=== PATIENT | female | born 1995 | race Caucasian/White ===

== ENCOUNTER → 2020-10-06 16:09 | Outpatient (BNVA) | payer OTHER, SELFPAY | PROVIDERS: Visit Provider Advanced Practice Midwife | DX: Z76.89 Persons encountering health services in other specified circumstances (principal) ==

== ENCOUNTER 2020-12-14 11:40 | Outpatient (REF) | payer OTHER, SELFPAY | END 2020-12-14 11:41 | disposition home or self-care (01) | LOC: HO.LAB 11:40 | PROVIDERS: Visit Provider Nurse Practitioner Family | DX: J02.9 Acute pharyngitis, unspecified (principal); Z20.822 Contact with and (suspected) exposure to COVID-19 | CPT/HCPCS: 36415; U0003; U0005 ==

== ENCOUNTER 2021-01-03 10:14 | Emergency (ER) | payer OTHER, SELFPAY ==
--- NOTE | ~2021-01-03 | CT_ITS ---
EXAMINATION: CT ABDOMEN AND PELVIS WITHOUT CONTRAST CLINICAL INFORMATION: Flank pain. History of kidney stones. COMPARISON: Previous CT of the abdomen and pelvis February 2018 and renal ultrasound December 2018 TECHNIQUE: Multidetector volumetric imaging was performed from the superior aspect of the liver through the pubic symphysis. Sagittal and coronal reformatted images were obtained on the technologist's workstation. This CT examination was performed using dose optimization techniques as appropriate, variously including the following: *Automated exposure control *Adjustment of mA and/or kV according to patient size (this includes techniques or standardized protocols for targeted exams where dose is matched to indication/reason for exam; i.e. extremities or head) *Use of iterative reconstruction technique DLP: 607 mGy-cm FINDINGS: LUNG BASES: The visualized lung bases are unremarkable. LIVER, GALLBLADDER, AND BILIARY TREE: The liver is normal in size, shape, and attenuation. No focal hepatic lesion or biliary ductal dilatation is present. The gallbladder is unremarkable with no evidence of radiopaque gallstones, gallbladder wall thickening, or obvious pericholecystic inflammatory changes. PANCREAS: Unremarkable. SPLEEN: Unremarkable. ADRENAL GLANDS: Unremarkable. KIDNEYS AND URETERS: There is mild right hydronephrosis and ureteral dilatation. The right ureter is dilated down to the bladder. No right renal or ureteral stone is seen. This may represent a recently passed stone. There is stranding of the fat surrounding the right ureter questionable for changes secondary to obstruction/backflow of urine. Differential would include infection. There are 2 adjacent left lower pole renal stones, measuring 1 and 3 mm. No left hydronephrosis, ureteral dilatation or ureteral stone is seen. BLADDER: Unremarkable. GASTROINTESTINAL TRACT: The small and large bowel are unremarkable. The appendix is unremarkable. ABDOMINAL WALL: There is a small umbilical hernia containing fat. LYMPH NODES: Normal. VASCULAR: Unremarkable. PELVIC VISCERA: Unremarkable. There is trace ascites in the pelvis. OSSEOUS STRUCTURES: Unremarkable. CT/CT abdomen pelvis wo con IMPRESSION: Mild right hydronephrosis and ureteral dilatation. The right ureter is dilated down to the bladder. No right stone is seen. This may represent a recently passed done. Stranding of the right periureteral fat. This may be secondary to obstruction with backflow of urine. Differential would include infection. 2 small adjacent left lower pole renal stones.
[2021-01-03 10:32] VITALS: BP 129/80; PULSE 115; RESP 18; TEMP 36.6; O2SAT 100; BMI 29.2
--- NOTE | 2021-01-03 10:38 | ED_ITS ---
HPI - Abdominal Pain General Chief Complaint: Abdominal Pain Stated Complaint: flank pain Time Seen by Provider: 01/03/21 10:36 Source: patient Mode of arrival: ambulatory Limitations: no limitations History of Present Illness HPI narrative: Patient's history of occasional kidney stone last time when she had stone was 2018 was doing fine for last 2 years yesterday after work at 16:00 noticed sudden onset of pain on the right flank area now she feels slight pain in the left flank area also associated with nausea vomited 1 time today Related Data Home Medications Medication Instructions Recorded Confirmed etonogestrel 0.12 mg-ethinyl vag ring VAGINAL 10/06/20 12/28/20 estradiol 0.015 mg/24 hr vaginal ring escitalopram oxalate 10 mg tablet 10 mg PO DAILY 12/14/20 Previous Rx's Medication Instructions Recorded etonogestrel 0.12 mg-ethinyl 1 vag ring VAGINAL Q4W #3 ea 10/06/20 estradiol 0.015 mg/24 hr vaginal ring amoxicillin 500 mg-potassium 1 tab PO BID 7 Days #14 tab 12/14/20 clavulanate 125 mg tablet dexamethasone 4 mg tablet 4 mg PO DAILY #18 tab MDD 12/14/20 TID*3days;BID*3days;1tab*3days azithromycin 500 mg tablet 500 mg PO DAILY 5 Days #5 tab 12/28/20 prednisone 20 mg tablet 20 mg PO .COMPLEX #18 tab 12/28/20 tramadol 50 mg PO Q6H PRN #20 tab 01/03/21 Allergies Allergy/AdvReac Type Severity Reaction Status Date / Time No Known Allergies Allergy Verified 12/28/20 14:18 [No Known Allergies*] Review of Systems Review of Systems Constitutional : No Weight loss, No Fever, No Chills ENT/Mouth : No sore throat, No Rhinorrhea Eyes: No Eye Pain, No Swelling Cardiovascular : No Chest Pain, no palpitations Respiratory : No Cough, No Sputum, no shortness of breath Gastrointestinal : + Nausea, +Vomiting, No Diarrhea, No abdominal Pain, no black stools Genitourinary : No Dysuria, No Urinary Frequency Musculoskeletal : No joint pain, No Myalgias, No Joint Swelling Skin : No Skin Lesions, No rash Neuro : No Weakness, No Numbness, No Dizziness, No Headache Psych : No Anxiety/Panic, No Depression Heme/Lymph: No Bruising, No Lymphadenopathy Endocrine : No Polyuria, No Polydipsia All other systems reviewed and are negative Physical Exam Vital Signs: Vital Signs: Last Vital Signs Temp 97.9 F 01/03/21 10:32 Pulse 115 H 01/03/21 10:32 Resp 18 01/03/21 10:32 BP 129/80 01/03/21 10:32 Pulse Ox 100 01/03/21 10:32 Body Mass Index 29.2 Appearance: Alert. Oriented X3. No acute distress. Eyes: Pupils equal, round and reactive to light. ENT: Pharynx normal. Neck: Normal inspection. Neck supple. CVS: Normal heart rate and rhythm. Pulses normal. Respiratory: No respiratory distress. Breath sounds normal. Abdomen: Soft and nontender. Bowel sounds are present, no mass palpable, right CVA tenderness ++ Skin: Skin warm and dry. Normal skin color. Normal skin turgor. Extremities: No lower extremity edema. Neuro: Oriented X 3. No motor deficit. No sensory deficit. MDM - Abdominal Pain MDM Narrative Medical decision making narrative: Patient feeling much better after IV fluids and pain medication CT scan showed right-sided hydronephrosis without any stone likely stone passed as urine has positive blood. Will discharge patient home on tramadol advised to follow with PCP/urologist Differential Diagnosis Differential diagnosis: Likely calculus of kidney Medical Records Attestation: I reviewed the patient's medical records. Lab Data Attestation: I reviewed the patient's lab results. Result diagrams: 01/03/21 10:57 01/03/21 10:57 Labs: Lab Results 01/03/21 01/03/21 01/03/21 Range/Units 10:57 10:57 11:11 WBC 12.0 H (4.8-10.8) X10*3/uL RBC 4.44 (4.20-5.50) X10*6/uL Hgb 13.7 (12.0-16.0) g/dl Hct 42.0 (37-47) % MCV 94.6 (80-98) fL MCH 30.9 (27.0-33.0) pg MCHC 32.6 (31.0-35.0) g/dl RDW 13.0 (11.0-16.0) % Plt Count 191 (160-400) X10*3/uL MPV 9.4 (9.4-12.3) fL Immature Gran % (Auto) 0.4 (0.0-0.4) % Neut % (Auto) 75.9 H (45-73) % Lymph % (Auto) 14.4 L (20-40) % [place] % (Auto) 8.5 (2-11) % Eos % (Auto) 0.7 (0-4) % Baso % (Auto) 0.1 (0-2) % Lymph # (Auto) 1.7 (1.2-4.9) X10*3/uL [place] # (Auto) 1.0 (0.1-1.2) X10*3/uL Eos # (Auto) 0.1 (0.0-0.4) X10*3/uL Baso # (Auto) 0.0 (0.0-0.2) X10*3/uL Abs Immat Gran (auto) 0.05 H (0.00-0.03) X10*3/uL Absolute Neuts (auto) 9.1 H (2.0-8.3) X10*3/uL Absolute Nucleated RBC 0.000 (0.0-0.012) X10*3/uL Nucleated RBC % (auto) 0.0 (0.0-0.2) /100WBC Sodium 141 (135-145) mmol/L Potassium 3.8 (3.3-5.1) mmol/L Chloride 107 (96-108) mmol/L Carbon Dioxide 28 (22-29) mmol/L Anion Gap 10 L (12-20) BUN 18 H (9-16) mg/dL Creatinine 0.78 (0.5-1.4) mg/dL Estim Creat Clear Calc 106.8 Estimated GFR > 60 Random Glucose 87 (60-115) mg/dL Calcium 8.7 (8.4-10.2) mg/dL Urine Color Urine Appearance Urine pH (5.0-8.0) Ur Specific [place] (1.005-1.025) Urine Protein (NEG-TRACE) MG/DL Urine Glucose (UA) (NEG) MG/DL Urine Ketones (NEG) MG/DL Urine Blood (NEG) Urine Nitrite (NEG) Ur Leukocyte Esterase (NEG) Urine RBC (0) /HPF Urine WBC (0-4) /HPF Ur Squamous Epith Cells /LPF Urine Bacteria /LPF Urine Test NEGATIVE (NEGATIVE) 01/03/21 Range/Units 11:11 WBC (4.8-10.8) X10*3/uL RBC (4.20-5.50) X10*6/uL Hgb (12.0-16.0) g/dl Hct (37-47) % MCV (80-98) fL MCH (27.0-33.0) pg MCHC (31.0-35.0) g/dl RDW (11.0-16.0) % Plt Count (160-400) X10*3/uL MPV (9.4-12.3) fL Immature Gran % (Auto) (0.0-0.4) % Neut % (Auto) (45-73) % Lymph % (Auto) (20-40) % [place] % (Auto) (2-11) % Eos % (Auto) (0-4) % Baso % (Auto) (0-2) % Lymph # (Auto) (1.2-4.9) X10*3/uL [place] # (Auto) (0.1-1.2) X10*3/uL Eos # (Auto) (0.0-0.4) X10*3/uL Baso # (Auto) (0.0-0.2) X10*3/uL Abs Immat Gran (auto) (0.00-0.03) X10*3/uL Absolute Neuts (auto) (2.0-8.3) X10*3/uL Absolute Nucleated RBC (0.0-0.012) X10*3/uL Nucleated RBC % (auto) (0.0-0.2) /100WBC Sodium (135-145) mmol/L Potassium (3.3-5.1) mmol/L Chloride (96-108) mmol/L Carbon Dioxide (22-29) mmol/L Anion Gap (12-20) BUN (9-16) mg/dL Creatinine (0.5-1.4) mg/dL Estim Creat Clear Calc Estimated GFR Random Glucose (60-115) mg/dL Calcium (8.4-10.2) mg/dL Urine Color YELLOW Urine Appearance HAZY Urine pH 6.5 (5.0-8.0) Ur Specific [place] 1.015 (1.005-1.025) Urine Protein TRACE (NEG-TRACE) MG/DL Urine Glucose (UA) NEG (NEG) MG/DL Urine Ketones NEG (NEG) MG/DL Urine Blood 3+ H (NEG) Urine Nitrite NEG (NEG) Ur Leukocyte Esterase NEG (NEG) Urine RBC 50-75 H (0) /HPF Urine WBC 5-9 H (0-4) /HPF Ur Squamous Epith Cells 2+ /LPF Urine Bacteria TRACE /LPF Urine Test (NEGATIVE) Discharge Plan Discharge Clinical Impression: Calculus of kidney Patient Disposition: Home, Self-Care Instructions: Kidney Stones (ED) Additional Instructions: Drink plenty of fluids Pain medication as prescribed Follow with PCP if not better Prescriptions: New tramadol 50 mg tablet 50 mg PO Q6H PRN (Reason: pain) Qty: 20 RF: 0 No Action dexamethasone [Decadron] 4 mg tablet 4 mg PO DAILY MDD TID*3days;BID*3days;1tab*3days Qty: 18 RF: 0 amoxicillin-pot clavulanate 500-125 mg tablet 1 tab PO BID 7 Days Qty: 14 RF: 0 azithromycin 500 mg tablet 500 mg PO DAILY 5 Days Qty: 5 RF: 0 prednisone 20 mg tablet 20 mg PO .COMPLEX Qty: 18 RF: 0 etonogestrel-ethinyl estradiol 0.12-0.015 mg/24 hr ring vaginal RF: 0 etonogestrel-ethinyl estradiol [NuvaRing] 0.12-0.015 mg/24 hr ring 1 vag ring vaginal Q4W Qty: 3 RF: 3 Interventions: ED Discharge Assessment Last Done: 01/03/21 13:02 Discharge Date/Time: 01/03/21 13:02 [facility] Past Medical History Medical History (Updated 01/03/21 @ 16:34 by Thang Lott MD) Asthma Hx of abnormal cervical Pap smear Kidney stone [employer] carrier Surgical History Hx of wisdom tooth extraction Family History Family History Mother TIA (transient ischemic attack) Maternal Grandmother Colorectal cancer Social History Social History Alcohol intake: current Alcohol intake frequency: a few times a month Smoking Status: Current every day smoker Cigarettes Per Day: 5 Advance Directives: No Advance Directives Information Provided: No Sexual orientation: Straight/Heterosexual
[2021-01-03 11:00] LABS: MANUAL DIFF FLAG NO
[2021-01-03 11:02] LABS: Basophils Percent Auto 0.1 % (0-2); Eosinophils Absolute Auto 0.1 X10*3/uL (0.0-0.4); Eosinophils Percent Auto 0.7 % (0-4); Hemoglobin 13.7 g/dl (12.0-16.0); Imm Gran Abs Auto 0.05 X10*3/uL (0.00-0.03); Imm Gran Pct Auto 0.4 % (0.0-0.4); Lymphocytes Absolute Auto 1.7 X10*3/uL (1.2-4.9); Lymphocytes Percent Auto 14.4 % (20-40); Mean Corpuscular HGB Conc 32.6 g/dl (31.0-35.0); Mean Corpuscular Hemoglobin 30.9 pg (27.0-33.0); Mean Corpuscular Volume 94.6 fL (80-98); Mean Platelet Volume 9.4 fL (9.4-12.3); Monocytes Percent Auto 8.5 % (2-11); Neutrophils Absolute Auto 9.1 X10*3/uL (2.0-8.3); Neutrophils Percent Auto 75.9 % (45-73); Platelet Count 191 X10*3/uL (160-400); Red Blood Count 4.44 X10*6/uL (4.20-5.50)
[2021-01-03] MEDS: Ketorolac Tromethamine 30 MG/ML VIAL IVPUSH (11:05)
[2021-01-03] MEDS: Morphine Sulfate 4 MG/ML CARTRIDGE IVPUSH (11:05)
[2021-01-03] MEDS: 0.9 % Sodium Chloride 1,000 ML 999 ML IVCONT (11:05)
[2021-01-03] MEDS: ondansetron HCL 4 MG/2 ML VIAL IVPUSH (11:05)
[2021-01-03 11:20] LABS: Anion Gap 10 (12-20); Blood Urea Nitrogen 18 mg/dL (9-16); Calcium 8.7 mg/dL (8.4-10.2); Carbon Dioxide 28 mmol/L (22-29); Chloride 107 mmol/L (96-108); Creatinine Clr Calc Pharmacy 106.8; Estimated Glomerular Filt Rate > 60; Glucose Random 87 mg/dL (60-115); Potassium 3.8 mmol/L (3.3-5.1); Sodium 141 mmol/L (135-145)
[2021-01-03 11:24] LABS: Glucose Urine UA NEG (NEG); Leukocyte Esterase Urine NEG (NEG); Nitrite Urine NEG (NEG); PH 6.5 (5.0-8.0); Specific Gravity - Urine 1.015 (1.005-1.025); Urine Blood 3+ (NEG); Urine Ketones NEG (NEG); Urine Protein TRACE MG/DL (NEG-TRACE)
[2021-01-03 11:25] LABS: Appearance Urine HAZY; Color Urine YELLOW
[2021-01-03 11:26] LABS: UPreg QC Valid YES; Urine Pregnancy NEGATIVE (NEGATIVE)
[2021-01-03 11:37] LABS: Bacteria Urine TRACE /LPF; RBC Urine 50-75 /HPF (0); Squamous Epithelial Cell Urine 2+ /LPF
== END 2021-01-03 13:02 | disposition home or self-care (01) ==
PROVIDERS: Emergency Provider Internal Medicine; PCP Internal Medicine
DX: N20.0 Calculus of kidney (principal); R10.9 Unspecified abdominal pain; Z79.899 Other long term (current) drug therapy
CPT/HCPCS: 36415; 74176; 80048; 81001; 81025; 85025; 87086; 96365; 96375; 99283; 99284; J1885; J2270; J2405

== ENCOUNTER → 2021-12-21 11:17 | Outpatient (BNVA) | payer OTHER, SELFPAY | PROVIDERS: PCP Internal Medicine; Visit Provider Advanced Practice Midwife | DX: Z32.01 Encounter for pregnancy test, result positive (principal) | CPT/HCPCS: 81025; 99212 ==

== ENCOUNTER 2021-12-28 11:02 | Outpatient (REF) | payer OTHER, SELFPAY ==
--- NOTE | ~2021-12-28 | US_ITS ---
EXAMINATION: OBSTETRICAL ULTRASOUND, FIRST TRIMESTER HISTORY: 26-year-old with the uncertain LMP LMP: 10/31/2021 (uncertain COMPARISON: None in this TECHNIQUE: Real time transabdominal imaging with color and M-mode Doppler. FINDINGS: A single, live IUP CRL of 13 mm c/w 7.4wks is noted. Heart Rate: 161 beats per minute. Both maternal ovaries are seen and appear normal. GESTATIONAL AGE: 1. GA from LMP: 8.2 wks 2. GA from AUA: 7.4 wks ESTIMATED DATE OF DELIVERY: 1. LETICIA from LMP: 08/07/2022 2. LETICIA from AUA: 08/12/2022 US/US OB <= 14 weeks fetus IMPRESSION: 1. A single live IUP 2. CRL consistent with the LMP age of 18.2 weeks 3. Normal ovaries Discussion: No specific ultrasound followup appears needed at this time. The patient was advised that ultrasound cannot guarantee the of a normal infant. Thank you very much for this referral. This note was generated with a voice recognition program. Please excuse any errors which may have been overlooked during my review of this note. Sometimes these errors may affect the content or meaning of a given sentence.
== END 2021-12-28 11:03 | disposition home or self-care (01) ==
LOC: HO.US 11:02
PROVIDERS: PCP Internal Medicine; Visit Provider Advanced Practice Midwife
DX: Z34.91 Encounter for supervision of normal pregnancy, unspecified, first trimester (principal); Z3A.08 8 weeks gestation of pregnancy
CPT/HCPCS: 76801

== ENCOUNTER 2024-03-23 08:28 | Outpatient (AMB) | payer OTHER, SELFPAY ==
--- NOTE | 2024-03-23 09:16 | MHC.OFFWIV ---
Intake Vital Signs 03/23/24 09:17 Height 5 ft 3 in Weight 156 lb BMI 27.6 BP 122/74 Blood Pressure Location Rt brachial Position Sitting Pulse 88 Pulse Source Pulse Oximeter Temp 98.4 F Temp Source Oral Pulse Oximetry (%) 99 Intake Visit Reasons: EP sinus pain/congestion Intake Note: pt is here for sinus pain and congestion Patient Tobacco Use Status: Never used Tobacco Allergies No Known Allergies [No Known Allergies*] Allergy (Verified 03/23/24 09:48) Medication List - Last Reconciled 03/23/24 by BARRERA Winters No Known Home Meds Do you need a note to return to daycare/school/sports/work: Yes HPI HPI Comments History of Present Illness Details Patient is a 28-year-old female in today for a sick visit. Patient reports that for the past 3 days she has developed symptoms of cough, sore throat, chest congestion, fever. Patient has used [id number] ibuprofen with mild effect. 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 Denies chest pain, shortness a breath, nausea, vomiting, diarrhea. Will obtain URI swab. Will obtain rapid strep. [facility] Medical History Kidney stone Asthma Hx of abnormal cervical Pap smear [facility] carrier Surgical History Hx of wisdom tooth extraction Family History Mother TIA (transient ischemic attack) Maternal Grandmother Colorectal cancer Social History Alcohol intake: current Alcohol intake frequency: a few times a month Patient Tobacco Use Status: Never used Tobacco Cigarettes Per Day: 5 Sexual orientation: Straight/Heterosexual Female Reproductive History Menstrual Age of Menarche: 11 Review of Systems Const All systems reviewed & are unremarkable except as noted in HPI and below Physical Exam Vital Signs: Last Vital Signs Temp 98.4 F 03/23/24 09:17 Pulse 88 03/23/24 09:17 BP 122/74 03/23/24 09:17 Pulse Ox 99 03/23/24 09:17 BMI result Body Mass Index 27.6 Vital signs reviewed stable. Const Other: Appearance: Alert.? Oriented X3.? No acute distress.? Head: Normocephalic, atraumatic, Eyes: Sclera white. ENT: Pharynx erythema, +Tonsillar Exudates. Tonsils +2. TM intact and pearly figueroa. Neck: Normal inspection.? Neck supple.?Full ROM. CVS: Normal heart rate and rhythm.? Pulses normal.? Respiratory: No respiratory distress.? Breath sounds normal.? Neuro: Oriented X 3.? Results AMB Rapid Strep AMB Rapid Strep Negative Last Edit by Igor Gomez CMA on 03/23/24 09:54 Results Reviewed Results Reviewed: Laboratory Last Values Strep Scn Rapid Clinic Negative 03/23/24 09:46 Assessment & Plan Assessment & Plan (1) Strep pharyngitis: Comment: Will give patient Augmentin with prednisone. Patient has been instructed on the side effects of these medications. She has been educated on signs of worsening symptoms and when to return to the walk-in or when to present to the ED Code(s): J02.0 - Streptococcal pharyngitis Plan: Will follow-up with URI swab results Plan Follow-up with PCP Orders: Orders SARS-CoV2/FLU/RSV Today J06.9 - Acute upper respiratory infection, unspecified AMB Rapid Strep Screen Today Z13.9 - Encounter for screening, unspecified Medications: New prednisone 40 mg (2 x 20 mg) PO DAILY 10 tabs 0RF amoxicillin-pot clavulanate 875-125 mg 1 tab PO Q12H 14 tabs 0RF Coding Level of Care Code Est Pt Level 3 (96995) Diagnoses Strep pharyngitis J02.0 Time Spent (min) 24
[2024-03-23 09:17] VITALS: BP 122/74; PULSE 88; TEMP 36.9; O2SAT 99; BMI 27.6
== END 2024-03-23 10:03 | disposition home or self-care (01) ==
PROVIDERS: PCP Internal Medicine; Visit Provider Nurse Practitioner Primary Care
DX: Z13.9 Encounter for screening, unspecified (principal); J02.0 Streptococcal pharyngitis
CPT/HCPCS: 87880; 99213

== ENCOUNTER 2024-03-23 10:38 | Outpatient (REF) | payer OTHER, SELFPAY ==
[2024-03-23 11:28] LABS: Influenza A PCR NEGATIVE (Negative); Influenza B PCR NEGATIVE (Negative); Resp Syncy Virus RNA Qual PCR NEGATIVE (Negative); SARS COV2 PCR INHOUSE NEGATIVE (Negative)
== END 2024-03-23 10:39 | disposition home or self-care (01) ==
LOC: HO.LNP 10:38
PROVIDERS: Visit Provider Nurse Practitioner Primary Care
DX: Z13.9 Encounter for screening, unspecified (principal)
CPT/HCPCS: 0241U

== ENCOUNTER 2024-07-28 08:09 | Outpatient (REF) | payer OTHER, SELFPAY ==
[2024-07-28 10:47] LABS: Influenza A PCR NEGATIVE (Negative); Influenza B PCR NEGATIVE (Negative); Resp Syncy Virus RNA Qual PCR NEGATIVE (Negative); SARS COV2 PCR INHOUSE NEGATIVE (Negative)
== END 2024-07-28 08:10 | disposition home or self-care (01) ==
LOC: HO.HMGCLNP 08:09
PROVIDERS: PCP Internal Medicine; Visit Provider Registered Nurse
DX: J06.9 Acute upper respiratory infection, unspecified (principal)
CPT/HCPCS: 0241U; 87880; 99212

== ENCOUNTER 2024-07-28 08:09 | Outpatient (AMB) | payer OTHER, SELFPAY ==
--- NOTE | 2024-07-28 08:10 | AM.OFFWIN_ITS ---
Intake Vital Signs 07/28/24 08:12 Weight 155 lb BP 112/70 Blood Pressure Location Rt brachial Position Sitting Pulse 128 H Pulse Source Pulse Oximeter Temp 97.9 F Temp Source Oral Pulse Oximetry (%) 98 Oxygen Delivery Method Room Air Intake Visit Reasons: EP ? sinus infection & sore throat Intake Note: Patient here for sore throat that started friday night. Patient Tobacco Use Status: Never used Tobacco Allergies No Known Allergies [No Known Allergies*] Allergy (Verified 07/28/24 08:13) Do you need a note to return to daycare/school/sports/work: Yes HPI EP ? sinus infection & sore throat HPI Details This note is constructed using voice recognition software. While every effort has been made to ensure accuracy, critical care educator errors may have been included. The patient is a 28 year old female who presents to the clinic today with sore throat and sinus congestion for the past 5 days. She also notes that she had an upper respiratory infection over the past month, and has been coughing for nearly the entire time, recently having the cough finally subside. She denies fever, chills. She reports body aches sinus pressure, sore throat. She has not tried anything to make it better. 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 [facility] Medical History Kidney stone Asthma Hx of abnormal cervical Pap smear [facility] carrier Surgical History Hx of wisdom tooth extraction Family History Mother TIA (transient ischemic attack) Maternal Grandmother Colorectal cancer Social History Alcohol intake: current Alcohol intake frequency: a few times a month Patient Tobacco Use Status: Never used Tobacco Cigarettes Per Day: 5 Sexual orientation: Straight/Heterosexual Female Reproductive History Menstrual Age of Menarche: 11 Review of Systems Const All systems reviewed & are unremarkable except as noted in HPI and below Physical Exam Vital Signs: Last Vital Signs Temp 97.9 F 07/28/24 08:12 Pulse 128 H 07/28/24 08:12 BP 112/70 07/28/24 08:12 Pulse Ox 98 07/28/24 08:12 Oxygen Delivery Method Room Air 07/28/24 08:12 Const General: cooperative, healthy appearing, comfortable and no acute distress Orientation/consciousness: patient oriented x3 Limitations: no limitations HEENT Head: Yes normal to inspection Ears: hearing grossly normal bilaterally, external ears normal and TM's normal bilaterally General nose exam: Normal external nose present, Normal nares present and No nasal discharge present Face and sinus: Yes normal facial exam and Yes sinuses nontender Mouth: Normal oral and palatal mucosa present and moist mucous membranes Throat: Yes tonsils normal, Yes uvula midline and Yes posterior oropharynx abnormal (Erythema) Eyes General: appearance normal, both eyes and all related structures Neck Neck: Yes normal visual inspection Resp Effort & Inspection: normal respiratory effort, able to speak in complete sentences, Actively coughing, no respiratory distress, not tachypneic, no tripod positioning and no use of accessory muscles Auscultation: clear to auscultation bilaterally Cardio Jugular venous distension: no JVD Rate: regular rate Rhythm: regular rhythm Heart sounds: S1 normal heart sound present, S2 normal heart sound present, no click, no gallops, no murmurs and no rubs Skin General skin exam: no rashes or lesions noted, elasticity normal and turgor normal Neuro General: patient oriented x3 Extrem General: Yes normal to inspection and Yes no clubbing, cyanosis or edema Assessment & Plan Assessment & Plan (1) URI (upper respiratory infection): Code(s): J06.9 - Acute upper respiratory infection, unspecified Qualifiers: URI type: unspecified URI Qualified Code(s): J06.9 - Acute upper respiratory infection, unspecified Plan: Viral swab obtained to rule out Covid based on symptoms. Advised mask wearing while symptomatic and quarantine per current CDC guidelines. Reviewed at home support methods including hydration, humidification, vix vapor rub, sinus rinse. Discussed treatment with antiviral therapy for covid with paxlovid including appropriate use and side effects, and need to start medication within 5 day of symptom onset, preferably within 48 hours of symptom onset. Patient wishes to decline paxlovid. Prednisone burst sent for symptomatic management of sinus pressure. Advised follow up with worsening symptoms such as dyspnea at rest, which would require emergent evaluation. Plan See above for full details and plan. Orders: Orders SARS-CoV2/FLU/RSV Today J06.9 - Acute upper respiratory infection, unspecified Medications: New prednisone 40 mg (2 x 20 mg) PO DAILY 3 days 6 tabs 0RF Coding Level of Care Code Est Pt Level 3 (86014) Diagnoses Upper respiratory tract infection, unspecified type J06.9 URI type: unspecified URI
[2024-07-28 08:12] VITALS: BP 112/70; PULSE 128; TEMP 36.6; O2SAT 98
== END 2024-07-28 08:34 | disposition home or self-care (01) ==
PROVIDERS: PCP Internal Medicine; Visit Provider Registered Nurse
DX: Z13.9 Encounter for screening, unspecified (principal); J06.9 Acute upper respiratory infection, unspecified